=== PATIENT | male | born 1945 | race Caucasian/White ===

== ENCOUNTER → 2016-08-27 | Outpatient (CLI) | payer OTHER ==
--- NOTE | 2016-08-27 15:03 | DI ---
PA /LATERAL CHEST X-RAY, 08/27/2016 11:46 AM : Clinical History: Dyspnea Previous Exam: None at this facility. There is no acute soft tissue or bony abnormality. Heart size is normal. Lungs are clear. Mediastinal structures are normal. There are no pulmonary nodules. IMPRESSION: Normal chest x-ray.
== END ==
LOC: MOB RAD 11:53
PROVIDERS: ATTEND Physician Assistant Medical
DX: R06.00 Dyspnea, unspecified (principal); R42 Dizziness and giddiness; R07.81 Pleurodynia; L72.3 Sebaceous cyst; F17.210 Nicotine dependence, cigarettes, uncomplicated
CPT/HCPCS: 10060 ×2; 71020; 99213; G0463

== ENCOUNTER → 2016-09-10 | Outpatient (CLI) | payer OTHER | LOC: MMPC 09:00 | DX: R42 Dizziness and giddiness (principal); I25.10 Atherosclerotic heart disease of native coronary artery without angina pectoris; I95.9 Hypotension, unspecified; N40.0 Benign prostatic hyperplasia without lower urinary tract symptoms; E78.5 Hyperlipidemia, unspecified; E55.9 Vitamin D deficiency, unspecified; J43.1 Panlobular emphysema | CPT/HCPCS: 99213 ==

== ENCOUNTER → 2016-09-11 | Outpatient (CLI) | payer OTHER ==
[2016-09-11 10:49] LABS: ASPARTATE AMINO TRANSFERASE 21 IU/L (21-57); BILIRUBIN,TOTAL 0.3 mg/dL (0.3-1.2); BLOOD UREA NITROGEN 23 mg/dL (7-22); BUN/CREATININE RATIO 32.85 (6-20); CHLORIDE 106 meq/L (98-112); CREATININE 0.7 mg/dL (0.70-1.50); EST GLOMERULAR FILTRATION > 60 (>60 ml/min/1.73m(2)); GLUCOSE 92 mg/dL (78-110); HDL CHOLESTEROL 48 mg/dL (40-150); POTASSIUM 4.7 meq/L (3.8-5.2); SODIUM 143 meq/L (135-145); TOTAL PROTEIN 6.8 g/dL (6.1-8.0); TRIGLYCERIDES 139 mg/dL (44-200)
[2016-09-11 10:53] LABS: HEMATOCRIT 43.9 % (42.0-52.0); HEMOGLOBIN 14.5 g/dL (14.0-18.0); MEAN CORPUSCULAR HEMOGLOBIN 29.1 PG (27-31); MEAN PLATELET VOLUME 11.2 FL (7.4-12.2); NEUTROPHILS % (AUTO) 55.2 % (50-80); RDW COEFFICIENT OF VARIATION 14.9 % (11.5-14.5); RED BLOOD COUNT 4.98 10^6/uL (4.70-6.10); WHITE BLOOD COUNT 6.48 10^3/uL (4.8-10.8)
[2016-09-11 10:54] LABS: BASOPHILS # (AUTO) 0.05 10*3/UL; BASOPHILS % (AUTO) 0.8 % (0-1); EOSINOPHILS % (AUTO) 2.6 % (0-8); IMM GRAN % (AUTO) 0.2 % (0-5); IMM GRAN# (AUTO) 0.01 10*3/UL; LYMPHOCYTES # (AUTO) 2.14 10*3/uL; MONOCYTES # (AUTO) 0.53 10*3/UL (0.3-0.8); MONOCYTES % (AUTO) 8.2 % (5-15); NEUTROPHILS # (AUTO) 3.58 10*3/UL; PLATELET MORPHOLOGY COMMENT NORMAL MORPHOLOGY (NORM)
== END ==
LOC: MOB LAB 08:06
DX: I95.9 Hypotension, unspecified (principal); J43.1 Panlobular emphysema; E78.5 Hyperlipidemia, unspecified; N40.0 Benign prostatic hyperplasia without lower urinary tract symptoms; E55.9 Vitamin D deficiency, unspecified; Z12.5 Encounter for screening for malignant neoplasm of prostate
CPT/HCPCS: 36415; 80053; 80061; 82306; 82533; 84443; 85025; G0103

== ENCOUNTER → 2016-09-18 | Outpatient (CLI) | payer OTHER ==
--- NOTE | 2016-09-18 15:59 | DI ---
DUPLEX COLOR DOPPLER CAROTID ULTRASOUND, 09/18/2016 1:05 PM: Clinical History: Dizziness. Previous Exam: None at this facility. Technique: 2D real time imaging is supplemented with duplex color doppler ultrasound imaging. RIGHT CAROTID ARTERY: 2D real time imaging of the right carotid system shows a normal appearance of the right common caroti d artery and the external and internal carotid arteries. Peak systolic velocities through the right c ommon carotid, the external carotid, and the internal carotid are 105 cm/s, 77 cm/s, and 80 cm/s, res pectively. All values correspond to diameter stenoses of 0-49%. LEFT CAROTID ARTERY: 2D real time imaging of the left carotid system shows a normal appearance of the left common carotid artery and the external and internal carotid arteries. Peak systolic velocities through the left comm on carotid, the external carotid, and the internal carotid are 112 cm/s, 77 cm/s, and 62 cm/s, respec tively. All values correspond to diameter stenoses of 0-49%. VERTEBRAL ARTERIES: There is antegrade flow through both vertebral arteries Cardiac rhythm is regular. Peak systolic [place] through the visualized portions of the right and left vertebral arteries are 36 cm/s and 41 cm /s, respectively. Both values correspond to diameter stenoses of 0-49%. Readin. There is no hemodynamically significant stenosis of either carotid system. 2. There is antegrade flow through both vertebral arteries. Cardiac rhythm is regular.
== END ==
LOC: US 13:00
DX: R42 Dizziness and giddiness (principal)
CPT/HCPCS: 93880

== ENCOUNTER → 2016-09-24 | Outpatient (CLI) | payer OTHER | LOC: MMPC 09:00 | DX: I95.1 Orthostatic hypotension (principal); I25.10 Atherosclerotic heart disease of native coronary artery without angina pectoris; N40.0 Benign prostatic hyperplasia without lower urinary tract symptoms; E78.5 Hyperlipidemia, unspecified; K21.9 Gastro-esophageal reflux disease without esophagitis; F17.210 Nicotine dependence, cigarettes, uncomplicated | CPT/HCPCS: 99213; G0463 ==

== ENCOUNTER → 2016-11-04 | Outpatient (CLI) | payer OTHER | LOC: MMPC 11:11 | DX: R42 Dizziness and giddiness (principal); I25.10 Atherosclerotic heart disease of native coronary artery without angina pectoris; N40.0 Benign prostatic hyperplasia without lower urinary tract symptoms; E78.5 Hyperlipidemia, unspecified; K21.9 Gastro-esophageal reflux disease without esophagitis; F17.210 Nicotine dependence, cigarettes, uncomplicated | CPT/HCPCS: 99213; G0463 ==

== ENCOUNTER → 2017-02-28 | Outpatient (CLI) | payer OTHER | LOC: MMPC 09:00 | PROVIDERS: ATTEND Physician Assistant Medical | DX: M54.31 Sciatica, right side (principal); M79.604 Pain in right leg | CPT/HCPCS: 99213; G0463 ==

== ENCOUNTER 2019-02-17 13:28 | Inpatient (IN) ==
--- NOTE | 2019-02-17 13:37 | PDOC ---
Dizziness HPI - General Chief Complaint: General Medical Stated Complaint: dizzy Date Seen by Provider: 02/17/19 Time Seen by Provider: 13:32 Source: POSITIVE: Patient Exam Limitations: POSITIVE: No limitations Nurse's Notes Reviewed & Considered: Yes - Record Incomplete EMS Report Reviewed & Considered: Verbal - History of Present Illness Initial Comments: 73 yo male presents to ED with complaint of dizziness. Patient has had complaints of dizziness for the past two years. Patient was seen for same complaint in ED last night. Patient walked to hospital earlier today because he stated he did not understand his discharge instructions from yesterday. Patient has called the outpatient clinic several times today stating he needed help with his dizziness. States he has not taken his medications today. patient has history of alcoholism according to EMS. Patient smokes daily. According to robert campos's family he has a history of dementia. His daughter lives with him in an apartment here in town. Associated Symptoms: REPORTS: Sense of Spinning. DENIES: Nausea, Vomiting, Light Headedness, Fainting, Near Fainting Current Ability to Walk/Stand: REPORTS: Walks w/o Assistance Usual Ability to Walk/Stand: REPORTS: Walks w/o Assistance Aggrevated by: REPORTS: Position Changes Similar Symptoms Previously: Yes Recently seen/treated/hospitalized: Yes Any Prior Injuries Related to Current Complaint?: No - Patient Home Medications Home Medications: Home Medications aspirin 81 mg tablet,delayed release 81 mg PO QDAY tab 06/20/17 ibuprofen 200 mg tablet 400 mg PO PRN PRN tab 06/20/17 polyethylene glycol 3350 17 gram/dose oral powder 255 g PO QDAY PRN #255 g 12/16/17 fludrocortisone 0.1 mg tablet 0.2 mg PO BID #120 tab 05/14/18 omeprazole 20 mg tablet,delayed release 20 mg PO QDAY PRN #90 tab 05/14/18 pravastatin 40 mg tablet 40 mg PO QDAY #90 tab 05/14/18 potassium chloride ER 20 mEq tablet,extended release 20 meq PO DAILY #60 tab 08/18/18 finasteride 5 mg tablet 5 mg PO QDAY #30 tab 12/23/18 sodium chloride 1 gram tablet 1,000 mg PO QDAY #30 tab 02/01/19 - Patient Allergies Allergies/Adverse Reactions: Allergies Allergy/AdvReac Type Severity Reaction Status Date / Time No Known Allergies Allergy Verified 02/16/19 14:19 Past Medical History - heen HEENT History: Hard of Hearing Cardiovascular History: Hyperlipidemia Additional Cardiovasular History: STENTS X2 Respiratory History: Denies History Gastrointestinal History: GERD Genitourinary History: Other (please comment) Additional Genitourinary History: PROSTATIC HYPERTROPHY Endocrine History: Denies History Musculoskeletal History: Denies History Prosthesis or Implant: No Additional Musculoskeletal History: LEFT 1ST AND 2 ND DIGIT (TABLE SAW) Neurological History: Denies History Blood Disorders: Denies History Psychiatric History: Denies History History of Sexually Transmitted Diseases: No Cancer History: Denies History History of MDRO: No History of Other Communicable Diseases: No Alcohol Use: None In the Past 12 Months, Have Used or Abuse Any Substance: None Previous Surgical History: Yes Type / Date of Surgery: 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 DENIES: Headache, Tingling, Numbness, Fainting Gastrointestinal: DENIES: Abdominal Pain, Nausea, Vomitting, Diarrhea Endocrine: REPORTS: Denies Symptoms Musculoskeletal: REPORTS: Denies MS Symptoms Genitourinary: REPORTS: Denies Symptoms Eyes: REPORTS: Denies Symptoms ENT: REPORTS: Denies Symptoms Skin: REPORTS: Denies Skin Symptoms Lympathic: REPORTS: Denies Lympathic Symptoms Immunologic: POSITIVE: Denies Symptoms Psychiatric: POSITIVE: Confusion Dizziness PE - General Appearance General Appearance: POSITIVE: No Acute Distress, Alert - HEENT HEENT: POSITIVE: Head Inspection Nml, Eyes Inspection Nml, Nose Inspection Nml, Pharynx Inspect. Nml, PERRL, EOMI - Pupil Size Pupil Size: 3 mm: Bilateral - Neck Neck: POSITIVE: Supple. NEGATIVE: Thyromegaly, Carotid Bruit - Respiratory Respiratory: POSITIVE: No Respiratory Distress, Breath Sounds Normal. NEGATIVE: Respiratory Distress - Cardiovascular Cardiovascular: POSITIVE: Regular Rate & Rhythm, No Murmur Peripheral Pulses: Radial (R): 2+, Radial (L): 2+ - Abdomen Abdomen: Soft: (All Quadrants), Normal Bowel Sounds: (All Quadrants), Denies Tenderness: (All Quadrants), No Splenomegaly: (All Quadrants), No Hepatomegaly: (All Quadrants), No Guarding: (All Quadrants) - Skin Skin: POSITIVE: Intact, Normal For Race, Warm, Dry, No Rash - Extremities Extremity: Non-Tender: (All Extremities), Normal ROM: (All Extremities), Normal Inspection: (All Extremities) - Neuro/Psych Neuro/Psych: POSITIVE: Alert, Affect Appropriate, Mood Appropriate, Normal Speech, Normal Cognition Cranial Nerves: POSITIVE: Normal As Tested Cerebellar: POSITIVE: Normal As Tested Sensorimotor: POSITIVE: No Motor Deficits, No Sensory Deficits, Reflexes Normal Reflexes: Patellar (R): 2+, Patellar (L): 2+ Dizziness Progress - Results Reviewed by me Xrays/CTs/US Reviewed by me: Yes Discussed with Radiologist: No Radiology Findings: CTA NECK - Normal evaluation of the cervical and intracranial vasculature. CT HEAD - No acute intracranial findings. Age related senescent changes Lab Results Reviewed by Me: Yes Lab Results:: Laboratory Results 02/17/19 02/17/19 02/17/19 13:30 14:10 14:10 WBC 6.40 RBC 4.86 Hgb 14.4 Hct 42.5 MCV 87.4 MCH 29.6 MCHC 33.9 RDW Std Deviation 48.7 RDW Coeff of Zahraa 15.4 H Plt Count 182 MPV 10.6 Immature Gran % (Auto) 0 Neut % (Auto) 72.7 Lymph % (Auto) 20.3 [place] % (Auto) 5.9 Eos % (Auto) 0.8 Baso % (Auto) 0.3 Immature Gran # (Auto) 0 Neut # (Auto) 4.65 Lymph # (Auto) 1.30 [place] # (Auto) 0.38 Eos # (Auto) 0.05 Baso # (Auto) 0.02 WBC Morphology Comment Normal morphology Plt Morphology Comment Normal morphology RBC Morph Comment Normal morphology Sodium 138 Potassium 4.1 Chloride 107 Carbon Dioxide 22 L Anion Gap 9 BUN 22 Creatinine 0.9 BUN/Creatinine Ratio 24.44 H Glucose 93 Calculated Osmolality 288.0 Calcium 9.9 Total Bilirubin 0.4 AST 22 ALT 15 L Alkaline Phosphatase 96 Troponin I Handheld Total Protein 6.7 Albumin 3.8 Globulin 2.9 Albumin/Globulin Ratio 1.30 Ur Collection Type Urine Color Urine Clarity Urine pH Ur Specific [place] Urine Protein Urine Glucose (UA) Urine Ketones Urine Occult Blood Urine Nitrate Urine Bilirubin Urine Urobilinogen Ur Leukocyte Esterase Urine RBC Urine WBC Ur Squamous Epith Cells Ur Renal Epithelial Cell Urine Crystals Urine Bacteria Urine Casts Urine Mucus Urine Trichomonas Urine Yeast Ur Culture Indicated? Serum Alcohol < 10 02/17/19 02/17/19 14:10 16:28 WBC RBC Hgb Hct MCV MCH MCHC RDW Std Deviation RDW Coeff of [place] Plt Count MPV Immature Gran % (Auto) Neut % (Auto) Lymph % (Auto) [place] % (Auto) Eos % (Auto) Baso % (Auto) Immature Gran # (Auto) Neut # (Auto) Lymph # (Auto) [place] # (Auto) Eos # (Auto) Baso # (Auto) WBC Morphology Comment Plt Morphology Comment RBC Morph Comment Sodium Potassium Chloride Carbon Dioxide Anion Gap BUN Creatinine BUN/Creatinine Ratio Glucose Calculated Osmolality Calcium Total Bilirubin AST ALT Alkaline Phosphatase Troponin I Handheld 0.000 Total Protein Albumin Globulin Albumin/Globulin Ratio Ur Collection Type Cath specimen Urine Color Yellow Urine Clarity Clear Urine pH 6.5 Ur Specific [place] <=1.005 Urine Protein Negative Urine Glucose (UA) Negative Urine Ketones Negative Urine Occult Blood Trace-intact H Urine Nitrate Negative Urine Bilirubin Negative Urine Urobilinogen 0.2 Ur Leukocyte Esterase Small Urine RBC 3-8 Urine WBC 3-8 Ur Squamous Epith Cells Moderate Ur Renal Epithelial Cell None Urine Crystals None Urine Bacteria Few Urine Casts None Urine Mucus None Urine Trichomonas None Urine Yeast None Ur Culture Indicated? Culture set Serum Alcohol CBC and BMP: 02/17/19 14:10 02/17/19 14:10 EKG Interpreted/Reviewed By Me:: Yes (Sinus rhythm at 81 bpm with Q waves in II, III, aVF) EKG Interpretation:: POSITIVE: Normal Sinus Rhythm, Other (sinus rhythm at 81 bpm with Q waves in leads II, III, aVF, no ST changes; nonspecific T wave inversion in aVR & aVL) - Patient's Progress Pain Medication Addressed: POSITIVE: Not Applicable Re-Examine Comment: I reviewed CT images and results. I reviewed lab results and EKG. I discussed all results with the patient. His hypotension has improved with fluid bolus. He is hungry and would like to eat. Will feed him here in ED and check oral challenge. Re-Examine Comment: Spoke with hospitalist, Dr. Kay, he will evaluate the case. Patient's hypotension resolved with about 500 mLs of fluid. Andrean is tolerating lunch well. All results discussed with patient. Social work consulted and will arrange for home health visits. Re-Examine Comment: Will defer antibiotic treatment to hospitalist. Patient admitted to hospitalist service in slightly improved condition. Status: POSITIVE: Improved (hypotension improved) MDM / ED Course: Patient presents with complaint of dizziness and hypotension. Orthostatic vitals obtained. will establish IV line and give bolus of fluids. Due to patient's complaints of dizziness will obtain EKG, CT head and CTA neck. Will also obtain serum labs. patient denies CP at this time. Patient has some component of dementia and does not remember calling the ED and the clinic multiple times today. CVA/Syncope Quality Measure Initiative: POSITIVE: EKG - Consult Consult (If Yes, Name of Consulting MD & Time Called): Yes (Dr. Kay) Consulting MD will see pt:: POSITIVE: [facility] [place] Admit Counseled: POSITIVE: Patient, RE: Lab Results, RE: Radiology Results, RE: DX Patient Care Time - Estimated PCT Patient Care Time (In Minutes): 75 Vital Signs - Recent Vital Signs Vital Signs: Vital Signs (Last 8 hours) Temp Pulse Resp BP BP Pulse Ox 02/17/19 13:29 97.1 F 93 17 87/66 98/67 93 - VS Reviewed Vital Signs Reviewed: Yes Discharge Clinical Impression: Dizziness, Dehydration, Urinary tract infection Hypotension Qualifiers: Hypotension type: orthostatic hypotension Qualified Code(s): I95.1 - Orthostatic hypotension Discharge Disposition: Admit to Inpatient Condition: Stable Patient Problem(s) Reviewed: Yes Care Transferred To: Dr. Kay Date Decision to Admit to Inpatient: 02/17/19 Time Decision to Admit to Inpatient: 15:45
[2019-02-17] MEDS ORDERED: Lactated Ringers 1,000 ML PRIMARY IV ONE (13:53)
[2019-02-17 14:20] LABS: BASOPHILS # (AUTO) 0.02 10*3/UL; BASOPHILS % (AUTO) 0.3 % (0-1); EOSINOPHILS # (AUTO) 0.05 10*3/UL; EOSINOPHILS % (AUTO) 0.8 % (0-8); Hematocrit [HCT] 42.5 % (42.0-52.0); Hemoglobin [HGB] 14.4 g/dL (14.0-18.0); MEAN CORPUSCULAR HGB CONC 33.9 g/dL (33-37); MEAN CORPUSCULAR VOLUME 87.4 FL (80-90); MEAN PLATELET VOLUME 10.6 FL (7.4-12.2); MONOCYTES # (AUTO) 0.38 10*3/UL (0.3-0.8); MONOCYTES % (AUTO) 5.9 % (5-15); NEUTROPHILS # (AUTO) 4.65 10*3/UL; NEUTROPHILS % (AUTO) 72.7 % (50-80); RED BLOOD COUNT 4.86 10^6/uL (4.70-6.10)
[2019-02-17 14:22] LABS: PLATELET MORPHOLOGY COMMENT NORMAL MORPHOLOGY (NORM); RBC MORPHOLOGY COMMENT NORMAL MORPHOLOGY (NORM); WBC MORPHOLOGY COMMENT NORMAL MORPHOLOGY (NORM)
[2019-02-17 14:29] LABS: BLOOD UREA NITROGEN 22 mg/dL (7-22); BUN/CREATININE RATIO 24.44 (6-20); SERUM ALBUMIN 3.8 g/dL (3.5-4.8)
--- NOTE | 2019-02-17 15:26 | DI ---
CT Head WWO Contrast 02/17/2019 1:58 PM [place]: [facility] [place] Comparison: None. Procedure: Noncontrast CT images through the head were reviewed. Findings: There is no acute intracranial hemorrhage or extra-axial fluid collection. The ventricles a re symmetric. There is mild global atrophy which is within the expected range for age. Decreased atte nuation in the periventricular white matter is consistent with mild chronic small vessel ischemic brandi nges. There is otherwise normal stevenson-white differentiation without enhancing mass or significant mass -effect. Vascular structures are intact with atheromatous calcifications noted in the intracranial va sculature. The visualized portions of the paranasal sinuses and mastoid air cells are clear. Review o f the osseous structures demonstrate no depressed calvarial fracture or aggressive osseous lesion. Th e facial soft tissues are unremarkable. Impression: 1. No acute intracranial findings. 2. Age related senescent changes as above.
--- NOTE | 2019-02-17 15:38 | DI ---
CT CTA Neck WWO Contrast 02/17/2019 1:57 PM History: [facility] [place] ^dizziness Comparison: CT chest 06/27/2017. Technique: CT angiography of the cervical vessels and [place] was performed after the admini stration of 65 mL of Ultravist 370 intravenous contrast. There was no immediate complication. Findings: There is normal opacification of the bilateral carotid and vertebral arteries. Left dominan t vertebral circulation is present. The posterior communicating arteries are hypoplastic or absent. T he [place] is otherwise complete. No focal aneurysm is identified. There is no evidence of d issection, thrombosis, or rupture. Atheromatous calcifications are noted in the cavernous segments of the bilateral internal carotid arteries. Further evaluation of the neck shows no significant cervical lymphadenopathy. The parotid and submand ibular glands exhibit normal CT morphology. Emphysematous changes are noted in the lung apices where there is biapical pleural-parenchymal scarring that has not significantly changed compared to prior i maging. The visualized osseous structures are normal for age with multilevel degenerative endplate ch anges. The thyroid gland is unremarkable. Impression: 1. Normal evaluation of the cervical and intracranial vasculature.
[2019-02-17 16:36] LABS: BILIRUBIN,URINE NEGATIVE (NEG); CLARITY,URINE CLEAR (CLEAR); COLOR,URINE YELLOW (Y); GLUCOSE, URINE (UA) NEGATIVE (NEG); OCCULT BLOOD,URINE Trace-intact (NEG); PH,URINE 6.5 (5.0-8.5); PROTEIN,URINE NEGATIVE (NEG); UROBILINOGEN,URINE 0.2 EU/dL (0.2)
[2019-02-17 16:42] LABS: SQUAMOUS EPITHELIAL CELL,UR MODERATE; URINE SAMPLE TYPE CATH SPECIMEN
[2019-02-17 16:43] LABS: BACTERIA,URINE FEW
--- NOTE | 2019-02-17 17:09 | PDOC ---
HPI - History of Present Illness Date of Service: 02/17/19 Time of Service: 17:03 Chief Complaint: Confusion and dizziness History of Present Illness: This very pleasant 73-year-old male with BPH, chronic dizziness/lightheadedness, coronary artery disease status post bare metal stents in 2013, tobacco abuse, amongst other medical issues, who comes in to the emergency room today with complaints of dizziness. I'm told by the emergency room physician today that the patient came in yesterday, complained of dizziness but had no recollection o f discharge instructions from the emergency room. He seemed to be oriented to person, place, and situation, but when it came to short-term details he had no recall of recent events. The patient apparently called the clinic multiple times with complaints of dizziness and they called 911 and the patient was picked up at his house and brought into the emergency room for evaluation. In the emergency room, he had a CTA of the neck, that did not reveal any evidence of carotid artery disease. A noncontrast head CT scan was negative for a bleed. The urinalysis is suggestive of urinary tract infection. The patient himself is a poor historian. He states he cannot tell me for sure if he is vertigo like or lightheaded in terms of his dizziness. He denies chest pain, shortness breath, nausea or vomiting or other epigastric discomfort at the time of his episodes. He states that he's had 2 falls related to the syncopal episodes, [place] [facility] [place] [facility] He cannot give me any history present events. He is lucid, but definitely has difficulty understanding more complex questions. It is clear his cognitive abilities with questions about his health care needs are not at full functioning capacity. Patient is not sure how many pills he is on. He is not sure if he is taking them all as prescribed or not. He cannot describe to me whether he is having urinary tract infection symptoms of burning, dysuria or not. Chart reflexes he has had urinary retention and has had some sort of cystoscopy, and I was able to find the results and review of his medical record. He had a water vaporization TURP. It appears that he had been on Bactrim for a month as well, and it could be related to recent staph epidermidis isolated in the bladder. This was on 12/02/2018. Past Medical History Medical History: 1. Coronary artery disease status post bare metal stents in 2013. 2. Benign prostatic hypertrophy with history of obstructive uropathy, status post recent transurethral water vaporization of the prostate with resultant improved post void residual. 3. Tobacco abuse. 4. Overall failure to thrive, weighs 138 pounds now and was 155 in 2017. 5. Cognitive impairment versus dementia. 6. Hypercholesterolemia. 7. GERD Surgical History: 1. Bare metal stents as mentioned. 2. History of cystoscopy Pertinent Family History: Significant for diabetes in one of his daughters. He states his father had stroke and heart attack and he does not know his mother's history Past Social History: Lives with his daughter. Used to work as a contractor. Smoker. Currently does not drink alcohol. Has 1 daughter and one granddaughter. Tobacco Use: Current Every Day Smoker In the Past 12 Months, Have Used or Abuse Any of the Following Substance: None Alcohol Use: None Medication / Allergies Home Medications: Home Medications Medication Instructions Recorded Confirmed aspirin 81 mg tablet,delayed 81 mg PO QDAY tab 06/20/17 02/17/19 release ibuprofen 200 mg tablet 400 mg PO PRN PRN tab 06/20/17 02/17/19 polyethylene glycol 3350 17 255 g PO QDAY PRN #255 g 12/16/17 02/17/19 gram/dose oral powder fludrocortisone 0.1 mg tablet 0.2 mg PO BID #120 tab 05/14/18 02/17/19 omeprazole 20 mg tablet,delayed 20 mg PO QDAY PRN #90 tab 05/14/18 02/17/19 release pravastatin 40 mg tablet 40 mg PO QDAY #90 tab 05/14/18 02/17/19 potassium chloride ER 20 mEq 20 meq PO DAILY #60 tab 08/18/18 02/17/19 tablet,extended release finasteride 5 mg tablet 5 mg PO QDAY #30 tab 12/23/18 02/17/19 sodium chloride 1 gram tablet 1,000 mg PO QDAY #30 tab 02/01/19 02/17/19 Allergies/Adverse Reactions: Allergies Allergy/AdvReac Type Severity Reaction Status Date / Time No Known Allergies Allergy Verified 02/16/19 14:19 Review of Systems - Review of Systems ROS Unobtainable: Due to Mental Status (I think the patient has more than a mild cognitive impairment and has underlying dementia. Very difficult to obtain an adequate review systems from him. He does deny, however, chest pain, shortness breath, nausea or vomiting currently.) Exam - Vitals Vital Signs: Vital Signs Temperature 97.1 F Temperature Source Temporal Artery Scan Pulse Rate [Pulse Oximeter 93 Right] Respiratory Rate 17 Blood Pressure [Right Arm] 98/67 Blood Pressure [Left Arm] 87/66 Pulse Ox 93 Oxygen Delivery Method Room Air Height 5 ft 8 in Weight 138 lb Vital Signs - Last Taken Temperature 96.7 F L 02/17/19 17:23 Pulse Rate 93 02/17/19 17:23 Respiratory Rate 17 02/17/19 17:23 Blood Pressure 87/66 02/17/19 17:23 Pulse Ox 95 02/17/19 17:23 - General General Appearance: No Acute Distress, Cooperative - Head Head Exam: Normal Inspection, Normocephalic, Atraumatic Additional Head Exam Details: Temporal wasting - Eye Eye Exam: POSITIVE: No Scleral Icterus - ENT ENT Exam: POSITIVE: Mucous Membranes Dry - Neck Neck Exam: Normal Inspection, No Tenderness, No Lymphadenopathy, No Thyromegaly, JVP is not Raised - Respiratory Respiratory Exam: POSITIVE: Clear to Auscultation - Bilaterally, Breathing Non Labored, Normal to Percussion and Palpation - Cardiovascular Cardiovascular Exam: POSITIVE: RRR, No Murmur, No Clicks, No Gallops, No Rubs, No JVD - GI/Abdominal GI/Abdominal Exam: POSITIVE: Normal Bowel Sounds, Non Tender, Non Distended, Soft - Rectal Rectal Exam: POSITIVE: Deferred - External Exam: POSITIVE: Deferred Exam: POSITIVE: Deferred - Extremities Extremities Exam: POSITIVE: No Edema Present, No Cyanosis Present, Clubbing Present - Back Back Exam: POSITIVE: No CVA Tenderness - Neurological Neurological Exam: POSITIVE: Alert, No Facial Droop, Speech Intact / Clear, Moves All Extremities Equally, Altered (He is oriented to person, place, but not necessarily to time. Not totally oriented to situation.) Additional Neurological Exam Details: Bruising left knee and leg - Psychiatric Psychiatric Exam: POSITIVE: Normal Affect, Normal Mood - Integumentary Integumentary Exam: POSITIVE: Normal Color, Warm, Dry, Intact Additional Integumentary Exam Details: Bruising as discussed above Results - Labs CBC and BMP: 02/17/19 14:10 02/17/19 14:10 Additional Lab Results: Laboratory Results 02/17/19 02/17/19 02/17/19 13:30 14:10 14:10 WBC 6.40 RBC 4.86 Hgb 14.4 Hct 42.5 MCV 87.4 MCH 29.6 MCHC 33.9 RDW Std Deviation 48.7 RDW Coeff of Zahraa 15.4 H Plt Count 182 MPV 10.6 Immature Gran % (Auto) 0 Neut % (Auto) 72.7 Lymph % (Auto) 20.3 Baldwin % (Auto) 5.9 Eos % (Auto) 0.8 Baso % (Auto) 0.3 Immature Gran # (Auto) 0 Neut # (Auto) 4.65 Lymph # (Auto) 1.30 Baldwin # (Auto) 0.38 Eos # (Auto) 0.05 Baso # (Auto) 0.02 WBC Morphology Comment Normal morphology Plt Morphology Comment Normal morphology RBC Morph Comment Normal morphology Sodium 138 Potassium 4.1 Chloride 107 Carbon Dioxide 22 L Anion Gap 9 BUN 22 Creatinine 0.9 BUN/Creatinine Ratio 24.44 H Glucose 93 Calculated Osmolality 288.0 Calcium 9.9 Total Bilirubin 0.4 AST 22 ALT 15 L Alkaline Phosphatase 96 Troponin I Handheld Total Protein 6.7 Albumin 3.8 Globulin 2.9 Albumin/Globulin Ratio 1.30 Ur Collection Type Urine Color Urine Clarity Urine pH Ur Specific Cutler Urine Protein Urine Glucose (UA) Urine Ketones Urine Occult Blood Urine Nitrate Urine Bilirubin Urine Urobilinogen Ur Leukocyte Esterase Urine RBC Urine WBC Ur Squamous Epith Cells Ur Renal Epithelial Cell Urine Crystals Urine Bacteria Urine Casts Urine Mucus Urine Trichomonas Urine Yeast Ur Culture Indicated? Serum Alcohol < 10 02/17/19 02/17/19 14:10 16:28 WBC RBC Hgb Hct MCV MCH MCHC RDW Std Deviation RDW Coeff of Zahraa Plt Count MPV Immature Gran % (Auto) Neut % (Auto) Lymph % (Auto) Baldwin % (Auto) Eos % (Auto) Baso % (Auto) Immature Gran # (Auto) Neut # (Auto) Lymph # (Auto) Baldwin # (Auto) Eos # (Auto) Baso # (Auto) WBC Morphology Comment Plt Morphology Comment RBC Morph Comment Sodium Potassium Chloride Carbon Dioxide Anion Gap BUN Creatinine BUN/Creatinine Ratio Glucose Calculated Osmolality Calcium Total Bilirubin AST ALT Alkaline Phosphatase Troponin I Handheld 0.000 Total Protein Albumin Globulin Albumin/Globulin Ratio Ur Collection Type Cath specimen Urine Color Yellow Urine Clarity Clear Urine pH 6.5 Ur Specific Cutler <=1.005 Urine Protein Negative Urine Glucose (UA) Negative Urine Ketones Negative Urine Occult Blood Trace-intact H Urine Nitrate Negative Urine Bilirubin Negative Urine Urobilinogen 0.2 Ur Leukocyte Esterase Small Urine RBC 3-8 Urine WBC 3-8 Ur Squamous Epith Cells Moderate Ur Renal Epithelial Cell None Urine Crystals None Urine Bacteria Few Urine Casts None Urine Mucus None Urine Trichomonas None Urine Yeast None Ur Culture Indicated? Culture set Serum Alcohol - EKG Data -: EKG Interpreted by Me Rate: Normal EKG Shows Normal: Sinus Rhythm - Imaging Status: Image Reviewed by Me (I looked at the head CT scan, there is no bleed. I read the radiology report., Periventricular white matter disease consistent with small vessel ischemic disease. CT scan of the neck with contrast shows patent carotid arteries, and I read the radiology report on that as well.) Assessment and Plan - Patient Problems (1) Urinary tract infection Current Visit: Yes Status: Acute Code(s): N39.0 - Urinary tract infection, site not specified Qualifiers: Urinary tract infection type: acute cystitis Hematuria presence: without hematuria Qualified Code(s): N30.00 - Acute cystitis without hematuria (2) Coronary artery disease Current Visit: Yes Status: Acute Code(s): I25.10 - Atherosclerotic heart disease of alutiiq coronary artery without angina pectoris Qualifiers: Coronary Disease-Associated Artery/Lesion type: alutiiq artery [place] vs. transplanted heart: alutiiq heart Associated angina: without angina Qualified Code(s): I25.10 - Atherosclerotic heart disease of alutiiq coronary artery without angina pectoris (3) BPH (benign prostatic hyperplasia) Current Visit: No Status: Chronic Onset Date: 02/20/15 Code(s): N40.0 - Benign prostatic hyperplasia without lower urinary tract symptoms Qualifiers: Lower urinary tract symptom presence: symptoms present Lower urinary tract symptom detail: urinary obstruction Qualified Code(s): N40.1 - Benign prostatic hyperplasia with lower urinary tract symptoms; N13.8 - Other obstructive and reflux uropathy (4) Dizziness Current Visit: Yes Status: Acute Code(s): R42 - Dizziness and giddiness (5) GERD (gastroesophageal reflux disease) Current Visit: Yes Status: Chronic Onset Date: 02/20/15 Code(s): K21.9 - Gastro-esophageal reflux disease without esophagitis Qualifiers: Esophagitis presence: esophagitis presence not specified Qualified Code(s): K21.9 - Gastro-esophageal reflux disease without esophagitis (6) Hyperlipidemia Current Visit: Yes Status: Acute Onset Date: 02/20/15 Code(s): E78.5 - Hyperlipidemia, unspecified Qualifiers: Hyperlipidemia type: unspecified Qualified Code(s): E78.5 - Hyperlipidemia, unspecified (7) Dementia Current Visit: Yes Status: Acute Code(s): F03.90 - Unspecified dementia without behavioral disturbance Qualifiers: Dementia type: vascular dementia Dementia behavioral disturbance: without behavioral disturbance Qualified Code(s): F01.50 - Vascular dementia without behavioral disturbance - Assessment / Plan Additional Assessment/Plan Details: Admit. I discussed with emergency room physician. We will start Rocephin for urinary tract infection but will start here on the floor as I started the admission process. Get TSH, free T4, vitamin B12 level, folic acid level, vitamin D level with mild cognitive impairment. Likely will need to get MOCA score I suspect underlying dementia. Try to simplify medications and eliminate those medications with cognitive impairment issues. Stop statin for example. Social situation for this patient is very difficult as the patient has an alcoholic daughter is his main support. I'm not sure if he'll be able to manage continued independent living. But we will assess this through the hospital stay. In terms of urinary tract infection, leukocytes are mild, there is bacteria present, cultures pending. Again, empiric therapy until we know culture results. PT and OT We'll try to clarify dizziness with the patient through the hospital stay to guide workup. For now I will do telemetry monitoring in case this is arrhythmia driven. May benefit from Holter monitoring as an outpatient? Continue aspirin for coronary artery disease. Full code. I tried to place called to daughter, she is a well-known alcoholic to the hospitalist service here, and unfortunately she is not available and it went to her voicemail. With worsening confusion/dementia, the patient is not safe for discharge home. He does not have social support able to safely be at home and he would be at significant risk, for example, turning on the stove and not recalling that he had done that.
[2019-02-17] MEDS ORDERED: CALCIUM CARBONATE 500 MG (TUMS) CHEWABLE TABLET PO PRN (17:22)
[2019-02-17] MEDS ORDERED: ONDANSETRON 4 MG/2 ML VIAL IVP PRN (17:22)
[2019-02-17] MEDS ORDERED: DOCUSATE 100 MG CAPSULE PO PRN (17:22)
[2019-02-17] MEDS ORDERED: ACETAMINOPHEN 325 MG TABLET PO PRN (17:22)
[2019-02-17] MEDS ORDERED: LIDOCAINE W/ SODIUM BICARB 0.5 ML SYR SUBD PRN (17:22)
--- NOTE | 2019-02-17 17:25 | EKG ---
[address] [address] Measurements Intervals [place] Rate: 81 P: 82 CA: 152 QRS: 84 QRSD: 87 T: 89 QT: 366 QTc: 403 Interpretive Statements SINUS RHYTHM Compared to ECG 02/16/2019 11:50:43 No significant changes Electronically Signed On 02-18-19 10:06:45 MDT by Nii Summers MD [email or web address]
[2019-02-17] MEDS: OMEPRAZOLE 20 MG CAPSULE PO SCH (18:24)
[2019-02-17] MEDS: ASPIRIN EC 81 MG TABLET PO SCH (18:24)
[2019-02-17] MEDS: Lactated Ringers 1,000 ML PRIMARY IV SCH (18:25)
[2019-02-17] MEDS: cefTRIAXone Inj 2 GM in Sodium Chloride 0.9% 100 ML IV SCH (18:25)
[2019-02-17] MEDS: FLUDROCORTISONE ACETATE 0.1 MG TABLET PO SCH (21:40)
[2019-02-18] MEDS: Lactated Ringers 1,000 ML PRIMARY IV SCH (07:19)
[2019-02-18] MEDS: FLUDROCORTISONE ACETATE 0.1 MG TABLET PO SCH ×2 (08:23→21:37)
[2019-02-18] MEDS: OMEPRAZOLE 20 MG CAPSULE PO SCH (08:23)
[2019-02-18] MEDS: ASPIRIN EC 81 MG TABLET PO SCH (08:24)
[2019-02-18] MEDS: POLYETHYLENE GLYCOL 3350 238 GM POWDER PO SCH (08:24)
[2019-02-18] MEDS: POTASSIUM CHLORIDE 20 MEQ TAB PO SCH (08:24)
[2019-02-18] MEDS ORDERED: Sodium Chloride Tab 1 TAB TAB PO SCH (09:00)
--- NOTE | 2019-02-18 15:12 | PTI REPORT ---
Thank you for the referral of Javier Gallegos. He was seen on 02/18/19 for an inpatient evaluation secondary to weakness, dizziness, and balance deficits. SUBJECTIVE: The patient is a 73-year-old male. Chart review reveals that the patient came into the emergency room yesterday with complaints of dizziness and had also presented to the emergency room the day before, also with dizziness. It was their opinion that he had no recollection of discharge instructions the day before, seemingly being oriented to person, place, and situation; however, presented with difficulty with short term details. Testing was negative for a stroke; however, was positive for a urinary tract infection. At the time of the evaluation, the patient's granddaughter is present, stating that at this time the patient's daughter lives with him; however, she is unable to help out the patient due to her poor health. The granddaughter currently is trying to seek out power of city attorney to get her grandfather into the [facility]. She states at this moment socially responsible investment adviser should be over at the patient's apartment due to concerns of his current living situation. The patient was difficult to talk to due to his inability to answer questions appropriately. He was very easily distracted and appeared confused. PAST MEDICAL HISTORY: Past medical history can be found in the patient's medical record. OBJECTIVE FINDINGS: Pain: The patient denied any pain when asked. Bed mobility/Transfers: The patient was able to perform bed mobility and transfers with min to mod assistance due to concerns for his safety and balance. Ambulation: The patient demonstrated the ability to ambulate well over 300 feet continuously with gait belt and hand hold assist as well as contact guard to min assist due to concerns of losing his balance. He was unable to ambulate in a straight line and preferred to walk along the wall, at times crossing his feet as well. When ambulating with verbal cues, the patient was asked to perform scanning activities in the horizontal plane which presented difficulty. When looking to the right, the patient had a tendency to cross his left foot over his right, presenting a tripping hazard as well as when looking to the left he had a tendency to cross his right foot over his left. Range of motion/Strength: Bilateral lower extremity range of motion is within functional limits with strength at best at 4/5. ASSESSMENT: Problem List: Concerns with balance and safety awareness Decreased safety with functional movement Physical Therapy Goals: To be met by discharge from inpatient: Patient will be able to perform all transfers and bed mobility safely. Patient will be able to ambulate up to 300 feet continuously with all wheeled walker. TREATMENT PLAN: Patient will be seen B.I.D during the week and one time per day over the weekend as an inpatient for generalized strengthening and balance awareness. INITIAL TREATMENT: Treatment today consisted of the initial evaluation in conjunction with occupational therapy. He did ambulate 300 feet focusing on horizontal scanning activities which required min to mod assist for prevention of falls. JULIA
--- NOTE | 2019-02-18 15:41 | OTI REPORT ---
Thank you for the referral of Javier Gallegos. He was seen on 02/18/19 for an occupational therapy inpatient evaluation secondary to weakness. SUBJECTIVE: The patient is a 73-year-old male who is being seen today secondary to coming to the emergency room. He has a diagnosis of chronic dizziness, coronary artery disease, a UTI, GERD, hyperlipidemia, and dementia. The patient's granddaughter was present during the session today and she reports that Javier typically lives with her mom. She did report that her mom is an alcoholic and does not take care of him very well. She is very skewed with her reports of how her grandpa is doing. She reported that her grandpa raised her from the 7th grade and she has very high respect for him and wants to help take care of him. She reports that if someone saw the house right now, it would not be pretty. They do have social work specialist involved and they are going over to the house today to check out his living conditions. She states she has noticed an increase in cognitive concerns and she states his balance has become worse. She reports that the house is "disgusting". The patient is unable to use his phone anymore. She is questioning whether he is getting the appropriate medications that he needs. He requires assistance with financial solutions advisor. She also reported that her mom is living off of his social security. Her mom does not have any income whatsoever other than his social security check and that is what they both live on. He has a history of chronic UTIs and is very forgetful. PAST MEDICAL HISTORY: Past medical history can be found in the patient's medical record. OBJECTIVE FINDINGS: General observations: The patient was able to respond with one word answers. He was able to follow one step commands for simple tasks. The patient demonstrated a lot of impulsivity and was forgetting what he was doing when asked to complete tasks. Range of motion: The patient had within functional limits for active range of motion of bilateral upper extremities. He was able to touch the back of his head for external rotation. Strength: Strength in bilateral upper extremities was 4+/5 for the shoulder, elbow, and wrist. Activities of daily living: The patient was able to doff and don his socks while sitting in a chair with verbal cues. Cognition: Today the patient was assessed with the Isidro Cognitive Assessment (MoCA). The results are as follows: Visuospatial/Executive: 0/5 Namin/3 Attention: 3/6 Language: 0/3 Abstraction: 0/2 Delayed recall: 0/5 Orientation: 3/6 The patient had a total score of 9/30 which places him in the SEVERE cognitive impairment category. ASSESSMENT: The patient is demonstrating severe cognitive impairment. His granddaughter is very concerned about him living with her mom as it does not sound like it is a very good situation. The patient's granddaughter's goal is to get him into the [facility] and hopefully become his power of disability attorney to take over some of the decisions that need to be made medically. The patient does need 24-hour care and the [facility] or another nursing facility would be recommended. The patient will need assistance with all of his medications and financial solutions advisor as well as with safety awareness and to address his impulsivity. The patient's balance is also an issue. He tends to forget what he is doing and loses focus easily, resulting in losing his balance. Problem List: Decreased ability to complete ADLs Decreased cognitive abilities Decreased ability to complete functional transfers Short-Term Goals: To be met by discharge from inpatient: Patient will be able to dress self including set up with contact guard assist. Patient will be able to complete a shower transfer and showering task with contact guard assist. Patient will be able to complete a toilet transfer as well as toilet hygiene independently. Patient will be able to complete dynamic upper extremity reaching tasks with contact guard assist to address his balance and concerns with standing activities. Long-Term Goals: To be met following discharge from inpatient: Patient will be discharged with 24-hour care. TREATMENT PLAN: Patient will be seen B.I.D during the week and one time per day over the weekend as an inpatient to address the above goals and objectives. INITIAL TREATMENT: Treatment today consisted of the initial evaluation only. JULIA
--- NOTE | 2019-02-18 16:13 | PDOC(PROG) ---
Date of Service: 02/18/19 Time of Service: 16:12 Interval History: patient seen, evaluated earlier this AM, again this afternoon. no chest pain, no SOB, no nausea or vomiting has not liked telemetry monitoring. scored 9/30 on MOCA, has moderate to severe dementia not able to live on his own, daughter not able to care for patient due to alcoholism. social worker clinical involved, [facility] willing to accept. family present (brothers and sister) and they are concerned for welfare of patient and want to see him in [facility]. granddaughter trying to sal POA Objective : Data - Labs CBC and BMP: 02/17/19 14:10 02/17/19 14:10 Objective : Exam - General General Appearance: No Acute Distress, Cooperative Additional General Exam Details: Vital Signs - Last Taken Temperature 98.2 F 02/18/19 16:23 Pulse Rate 62 02/18/19 16:23 Respiratory Rate 16 02/18/19 16:23 Blood Pressure 184/95 02/18/19 16:23 Pulse Ox 95 02/18/19 16:23 - Eye Eye Exam: No Scleral Icterus - ENT ENT Exam: Mucous Membranes Moist - Neck Neck Exam: JVP is not Raised - Respiratory Respiratory Exam: Clear to Auscultation - Bilaterally, Breathing Non Labored - Cardiovascular Cardiovascular Exam: RRR, No Murmur, No Clicks, No Gallops, No Rubs, No JVD - GI/Abdominal GI/Abdominal Exam: Normal Bowel Sounds, Non Tender, Non Distended, Soft - Extremities Extremities Exam: No Edema Present, No Cyanosis Present, Clubbing Present - Neurological Neurological Exam: Alert, No Facial Droop, Speech Intact / Clear, Moves All Ext remities Equally Additional Neurological Exam Details: oriented to person, not to place, time or situation. Assessment and Plan - Patient Problems (1) Urinary tract infection Current Visit: Yes Status: Acute Code(s): N39.0 - Urinary tract infection, site not specified Qualifiers: Urinary tract infection type: acute cystitis Hematuria presence: without hematuria Qualified Code(s): N30.00 - Acute cystitis without hematuria (2) Coronary artery disease Current Visit: Yes Status: Acute Code(s): I25.10 - Atherosclerotic heart disease of [place] coronary artery without angina pectoris Qualifiers: Coronary Disease-Associated Artery/Lesion type: [place] artery [place] vs. transplanted heart: [place] heart Associated angina: without angina Qualified Code(s): I25.10 - Atherosclerotic heart disease of [place] coronary artery without angina pectoris (3) BPH (benign prostatic hyperplasia) Current Visit: No Status: Chronic Onset Date: 02/20/15 Code(s): N40.0 - Benign prostatic hyperplasia without lower urinary tract symptoms Qualifiers: Lower urinary tract symptom presence: symptoms present Lower urinary tract symptom detail: urinary obstruction Qualified Code(s): N40.1 - Benign prostatic hyperplasia with lower urinary tract symptoms; N13.8 - Other obstructive and reflux uropathy (4) Dizziness Current Visit: Yes Status: Acute Code(s): R42 - Dizziness and giddiness (5) GERD (gastroesophageal reflux disease) Current Visit: Yes Status: Chronic Onset Date: 02/20/15 Code(s): K21.9 - Gastro-esophageal reflux disease without esophagitis Qualifiers: Esophagitis presence: esophagitis presence not specified Qualified Code(s): K21.9 - Gastro-esophageal reflux disease without esophagitis (6) Hyperlipidemia Current Visit: Yes Status: Acute Onset Date: 02/20/15 Code(s): E78.5 - Hyperlipidemia, unspecified Qualifiers: Hyperlipidemia type: unspecified Qualified Code(s): E78.5 - Hyperlipidemia, unspecified (7) Dementia Current Visit: Yes Status: Acute Code(s): F03.90 - Unspecified dementia without behavioral disturbance Qualifiers: Dementia type: vascular dementia Dementia behavioral disturbance: without behavioral disturbance Qualified Code(s): F01.50 - Vascular dementia without behavioral disturbance - Assessment / Plan Additional Assessment/Plan Details: still awaiting urine culture results, continue empiric rocephin for UTI, present on admission dementia is advanced, associated with weight loss--known smoker will get CT of chest given smoking history check MRI brain to see if stroke present, cerebellar damage to explain dizziness back off on flourinef with elevated blood pressures dizziness could be dementia related, possibly small vessel disease related stop telemetry monitoring, patient not tolerating, and continues to try to pull leads off several times, not understanding them. not able to live on his own, daughter not able to care for patient due to alcoholism. social worker clinical involved, [facility] willing to accept. family present (brothers and sister) and they are concerned for welfare of patient and want to see him in [facility]. granddaughter trying to sal POA possible disposition to SNF on Friday?
--- NOTE | 2019-02-18 17:12 | DI ---
MRI Brain WO Contrast 02/18/2019 3:25 PM History: [facility] [place] DI ^confusion, dizziness, question stroke Comparison: CT head from earlier the same day. Technique: Routine noncontrast multiecho multiplanar MR imaging of the brain was performed. Findings: There is no evidence of acute or chronic hemorrhage. No extra-axial fluid collections are p resent. There is no focal mass or mass-effect. The ventricles and cisterns are globally prominent, co nsistent with age related atrophy. There is normal anatomic appearance of the midline structures. No white matter abnormalities are seen. There is no diffusion restriction. The cerebral vasculature is grossly normal in appearance. The orbits and paranasal sinuses are unremarkable. Impression: 1. No MR evidence of acute intracranial pathology. 2. Age related senescent changes.
--- NOTE | 2019-02-18 18:05 | DI ---
CT Chest W Contrast 02/18/2019 4:55 PM History: [facility] [place] DI ^smoker, weight loss Comparison: Chest x-ray from 02/16/2019, CT abdomen/pelvis 09/23/2018, CT chest 06/27/2017. Technique: Contrast enhanced CT of the chest was performed after the administration of 65 mL of Omnip aque 300 intravenous contrast. Axial, coronal, and sagittal images were obtained from the thoracic in let through the lung bases. Findings: Evaluation of the lungs demonstrates emphysematous changes bilaterally with no consolidatio n, pneumothorax, or pleural effusion. There is biapical pleural-parenchymal scarring. No new pulmonar y nodules are noted. There is moderate diffuse bronchial wall thickening without endobronchial lesion. There is no mediast inal or hilar lymphadenopathy. The thoracic aorta and pulmonary vessels demonstrate normal course and caliber. There are aortic and coronary artery calcifications. Heart size is within normal limits wit h no pericardial effusion. The thyroid exhibits normal CT morphology. Osseous structures are not significantly changed. The visualized upper abdominal structures incompletely captured an abdominal aortic aneurysm that kary sures up to 4.5 cm in AP dimension (previously 3.9 cm). There is likely contained plaque rupture juju g the left lateral wall, though the extent of the aorta is not captured. Hypoattenuating lesions in t he liver and left kidney have not significantly changed compared to prior imaging. Impression: 1. Bilateral emphysematous change without CT evidence of acute cardiopulmonary pathology. 2. There is diffuse bronchial wall thickening without endobronchial lesion. This is a non-specific fi nding that is most commonly seen in the setting of acute or chronic bronchitis, as well as reactive a irways disease. 3. Enlarging abdominal aortic aneurysm, incompletely characterized on this exam. Dedicated angiograph ic imaging is recommended.
[2019-02-18] MEDS: cefTRIAXone Inj 2 GM in Sodium Chloride 0.9% 100 ML IV SCH (18:12)
[2019-02-19 05:43] LABS: BLOOD UREA NITROGEN 15 mg/dL (7-22); BUN/CREATININE RATIO 18.75 (6-20)
[2019-02-19] MEDS ORDERED: levETIRAcetam Inj 500 MG/5 ML VIAL IV ONE (06:08)
[2019-02-19] MEDS: OMEPRAZOLE 20 MG CAPSULE PO SCH (08:32)
[2019-02-19] MEDS: ASPIRIN EC 81 MG TABLET PO SCH (08:32)
[2019-02-19] MEDS: POTASSIUM CHLORIDE 20 MEQ TAB PO SCH (08:32)
[2019-02-19] MEDS: FLUDROCORTISONE ACETATE 0.1 MG TABLET PO SCH ×2 (08:33→20:20)
[2019-02-19] MEDS: POLYETHYLENE GLYCOL 3350 238 GM POWDER PO SCH (10:17)
--- NOTE | 2019-02-19 10:40 | OT.PROG ---
Progress Note Progress Note: Due to medical issues during PT session this morning, OT session was withheld. will attempt this afternoon.
--- NOTE | 2019-02-19 10:50 | PDOC(PROG) ---
Date of Service: 02/19/19 Time of Service: 10:44 Interval History: He thought he arrived to the hospital yesterday. I don't think he is aware this is a hospital. He states he is happy with the free meal and breakfast this morning. He denies any chest pains, trouble breathing, nausea or vomiting. 2 events this morning. RN described event where patient became stiff and unresponsive, episode resolved, patient has no recall of event. no convulsions. patient had postural hypotension in therapy today. they stopped therapy Objective : Data - Labs CBC and BMP: 02/17/19 14:10 02/19/19 05:27 - Imaging CT Scan Status: Image Reviewed by Me (CT chest reviewed and discussed with radiology. There are some nodules, but no masses or suspicious lesions. However incidentally there appears to be an abdominal aortic aneurysm that we will characterize this morning with a CTA scan of the abdomen and pelvis with abdominal aortic focus with the runoff to the bifurcation) Objective : Exam - General General Appearance: No Acute Distress, Cooperative Additional General Exam Details: Vital Signs - Last Taken Temperature 98.1 F 02/19/19 06:26 Pulse Rate 74 02/19/19 06:26 Respiratory Rate 14 02/19/19 06:26 Blood Pressure 144/74 02/19/19 06:26 Pulse Ox 96 02/19/19 06:26 - Eye Eye Exam: No Scleral Icterus - ENT ENT Exam: Mucous Membranes Moist - Neck Neck Exam: JVP is not Raised - Respiratory Respiratory Exam: Clear to Auscultation - Bilaterally, Breathing Non Labored - Cardiovascular Cardiovascular Exam: RRR, No Murmur, No Clicks, No Gallops, No Rubs, No JVD - GI/Abdominal GI/Abdominal Exam: Normal Bowel Sounds, Non Tender, Non Distended, Soft - Rectal Rectal Exam: Deferred - External Exam: Deferred Exam: Deferred - Extremities Extremities Exam: No Edema Present, No Cyanosis Present, Clubbing Present - Neurological Neurological Exam: Alert, No Facial Droop, Speech Intact / Clear, Moves All Extremities Equally Additional Neurological Exam Details: Oriented to person, not to place, time, or situation Assessment and Plan - Patient Problems (1) Abdominal aortic aneurysm Current Visit: Yes Status: Acute Code(s): I71.4 - Abdominal aortic aneurysm, without rupture Qualifiers: Presence of rupture: without rupture Qualified Code(s): I71.4 - Abdominal aortic aneurysm, without rupture (2) Urinary tract infection Current Visit: Yes Status: Acute Code(s): N39.0 - Urinary tract infection, site not specified Qualifiers: Urinary tract infection type: acute cystitis Hematuria presence: without hematuria Qualified Code(s): N30.00 - Acute cystitis without hematuria (3) Coronary artery disease Current Visit: Yes Status: Acute Code(s): I25.10 - Atherosclerotic heart disease of [place] coronary artery without angina pectoris Qualifiers: Coronary Disease-Associated Artery/Lesion type: [place] artery [place] vs. transplanted heart: [place] heart Associated angina: without angina Qualified Code(s): I25.10 - Atherosclerotic heart disease of [place] coronary artery without angina pectoris (4) BPH (benign prostatic hyperplasia) Current Visit: No Status: Chronic Onset Date: 02/20/15 Code(s): N40.0 - Benign prostatic hyperplasia without lower urinary tract symptoms Qualifiers: Lower urinary tract symptom presence: symptoms present Lower urinary tract symptom detail: urinary obstruction Qualified Code(s): N40.1 - Benign prostatic hyperplasia with lower urinary tract symptoms; N13.8 - Other obstructive and reflux uropathy (5) Dizziness Current Visit: Yes Status: Acute Code(s): R42 - Dizziness and giddiness (6) GERD (gastroesophageal reflux disease) Current Visit: Yes Status: Chronic Onset Date: 02/20/15 Code(s): K21.9 - Gastro-esophageal reflux disease without esophagitis Qualifiers: Esophagitis presence: esophagitis presence not specified Qualified Code(s): K21.9 - Gastro-esophageal reflux disease without esophagitis (7) Hyperlipidemia Current Visit: Yes Status: Acute Onset Date: 02/20/15 Code(s): E78.5 - Hyperlipidemia, unspecified Qualifiers: Hyperlipidemia type: unspecified Qualified Code(s): E78.5 - Hyperlipidemia, unspecified (8) Dementia Current Visit: Yes Status: Acute Code(s): F03.90 - Unspecified dementia without behavioral disturbance Qualifiers: Dementia type: vascular dementia Dementia behavioral disturbance: without behavioral disturbance Qualified Code(s): F01.50 - Vascular dementia without behavioral disturbance - Assessment / Plan Additional Assessment/Plan Details: For abdominal aortic aneurysm, characterize with CTA of abdomen and pelvis today. Awaiting report. I did discuss with family, particularly his granddaughter who is pursuing a power of trademark attorney. I also spoke with his brothers and sister, and I would not recommend any therapy for this, although an endograft could be considered if patient is a candidate. If they pursue endograft, the patient would probably have to have an appointment initially with vascular surgery to determine his candidacy for an endograft placement and a perhaps interventional radiology. I did state to the family that if this were to rupture, it would likely be a very quick . They expressed that they understand the risks and benefits involved. In terms of urinary tract infection, continue Rocephin. It was reintubated for growth, there is no growth by tomorrow, I suspect that this is not likely the case. but continue for now. Patient appears to have postural hypotension that's extremely variable. Continue Florinef. May be difficult to add antihypertensive agents based on significant drops in blood pressure at times. The patient has no medical decision making capacity as his dementia is too far advanced. In terms of his decision-making abilities outside of medical issues, that is more of a legal question but he does not have medical decision making capacity. I agree with the family's approach to try and help her granddaughter become the power of trademark attorney is the patient's daughter is an alcoholic, and probably not capable of helping the patient in an appropriate manner. Patient not safe to live at home due to his dementia. In terms of his event this morning where it seems suspicious for seizure, I did discuss that patients with dementia have about a 1 and 4 chance of having a seizure disorder. I offered workup, but empiric therapy is also reasonable. They opted for empiric antiseizure therapy and have started the patient on Keppra. I did disclose rare risk of Alcocer-Piotr syndrome and they seem to understand that as well in terms of trying this medication but still opt for empiric therapy with Keppra. Probable disposition to [facility] tomorrow.
--- NOTE | 2019-02-19 10:53 | PT.PROG ---
Progress Note Progress Note: S. pt was finished with Breakfast and was willing to work with PT O. pt was assisted with Donning Cloths Min A for Balance while he put on his cloths. Min A for ambulation to the toilet, He was transferred to a W/C and transported down to therapy. He ambulated with Min A outside and sat down and was helped to Ambulate back in. He transferred from chair to wheel chair. Checked BP's which were 75/50. He was transported by W/C up to room and nursing was notified. A. pt grew very light headed and had a difficult gait. Safety was a concern and we sat him down and checked blood pressures. When we took him back to the room medical staff and family were discussing options for an aortic bulge. Blood pressures are a concern 75/50. Granddaughter was asked to bring clean clothes for the pt. He was confused cognitively though he was able to recognize me from 20 years ago. P. cont POC until decisions are made concerning health options and possible long goods drier care. Kylee Clay TERRITORY MANAGER [employer]
--- NOTE | 2019-02-19 14:38 | DCSUMMARY ---
Hospitalization Summary Hospital Course: Final Discharge Diagnosis: Current Visit Problems Problem Status Onset Code Dizziness Acute R42 Hypotension Acute I95.9 Dehydration Acute E86.0 Urinary tract infection Acute N39.0 Urinary tract infection Acute N39.0 Coronary artery disease Acute I25.10 Dementia Acute F03.90 Abdominal aortic aneurysm Acute I71.4 Hyperlipidemia Acute 02/20/15 E78.5 GERD (gastroesophageal reflux disease) Chronic 02/20/15 K21.9 Diagnostic Data, Laboratory Data, and Procedures of Signifigance: Past Medical History Medical History: 1. Coronary artery disease status post bare metal stents in 2013. 2. Benign prostatic hypertrophy with history of obstructive uropathy, status post recent transurethral water vaporization of the prostate with resultant improved post void residual. 3. Tobacco abuse. 4. Overall failure to thrive, weighs 138 pounds now and was 155 in 2017. 5. Cognitive impairment versus dementia. 6. Hypercholesterolemia. 7. GERD Surgical History: 1. Bare metal stents as mentioned. 2. History of cystoscopy Pertinent Family History: Significant for diabetes in one of his daughters. He states his father had stroke and heart attack and he does not know his mother's history Past Social History: Lives with his daughter. Used to work as a contractor. Smoker. Currently does not drink alcohol. Has 1 daughter and one granddaughter. History and Physical pertinent to Admission: Probable disposition to [facility] tomorrow. Course of Hospitalization: This very nice 73-year-old the gentleman, with a history of BPH chronic dizziness and lightheadedness, coronary artery disease status post the bare metal stents please see complete list of past medical history comes into the ER complaining of dizziness he also went to the ER the day before but he had no recollection that he was there CT of the neck was negative CT of the head was negative his UA culture was negative and his cognitive capacities are diminished not knowing why he takes his pills or understands a lot of his chronic medical issues. It was arranged for him by my colleague Dr. Gaxiola who spoke to the family to be transferred to [facility] since the patient cannot take care of himself please see his H&P and progress notes for details. He does have a history of abdominal aortic aneurysm seen on CT scan today he is getting the CTA angiography of his abdomen to better determine the size of this aortic abdominal aneurysm Dr. Gaxiola discussed this with her granddaughter was pursuing power of research attorney and that they will figure out if to pursue anything or to pursue surgical treatment after the results are in this was conveyed to Dr. Ocasio primary care physician by Dr. Gaxiola who will pursue whatever the family is thinking hopefully the the granddaughter will obtain power of research attorney today to make decisions for his health. In terms of his UTI there is no growth so antibiotics were stopped his postural hypertension is stable he is on Florinef. His dementia is too far advanced and has no medical decision capacity. He is also on Keppra empirically as discussed by Dr. Gaxiola and the family. He will be discharged in the morning to [facility]. Patient is doing well has no complaints no chest pain nausea or vomiting he is very happy at the to be here On the date of discharge, the patient was examined: Gen.: No acute distress, alert, nontoxic Heart: Regular rate and rhythm, no murmurs, clicks, gallops, or rubs Lungs: Clear to auscultation bilaterally, breathing is nonlabored Abdomen/GI: Normal tones on auscultation, soft, nontender, nondistended Musculoskeletal/extremities: No clubbing, cyanosis, or edema Vitals reviewed and are listed below Vital Signs (24 hrs) 02/18/19 16:23 02/18/19 21:00 02/19/19 00:31 Temperature 98.2 F 97.3 F Pulse Rate [Apical] 62 Pulse Rate [Pulse Oximeter Right] 84 72 Respiratory Rate 16 16 Blood Pressure [Left Arm] 184/95 Blood Pressure [Right Arm] 139/100 151/100 Pulse Ox 95 97 95 02/19/19 05:00 02/19/19 06:26 02/19/19 12:23 Temperature 98.1 F 97.6 F Pulse Rate [Apical] Pulse Rate [Pulse Oximeter Right] 56 L 74 74 Respiratory Rate 16 14 16 Blood Pressure [Left Arm] 92/54 Blood Pressure [Right Arm] 115/61 144/74 Pulse Ox 94 96 95 Assessment and Plan: 1. As per discharge assessments above 2. Disposition: [facility] in a.m. 3. Condition on discharge, stable and improved. 4. Diet: regular diet 5. Activities: resume normal activities 6. Follow-Up: 1. PCP 2. 7. Medications at the Time of Discharge: Home Medications Medication Instructions Recorded Confirmed aspirin 81 mg tablet,delayed 81 mg PO QDAY tab 06/20/17 02/17/19 release ibuprofen 200 mg tablet 400 mg PO PRN PRN tab 06/20/17 02/17/19 polyethylene glycol 3350 17 255 g PO QDAY PRN #255 g 12/16/17 02/17/19 gram/dose oral powder fludrocortisone 0.1 mg tablet 0.2 mg PO BID #120 tab 05/14/18 02/17/19 omeprazole 20 mg tablet,delayed 20 mg PO QDAY PRN #90 tab 05/14/18 02/17/19 release pravastatin 40 mg tablet 40 mg PO QDAY #90 tab 05/14/18 02/17/19 potassium chloride ER 20 mEq 20 meq PO DAILY #60 tab 08/18/18 02/17/19 tablet,extended release finasteride 5 mg tablet 5 mg PO QDAY #30 tab 12/23/18 02/17/19 sodium chloride 1 gram tablet 1,000 mg PO QDAY #30 tab 02/01/19 02/17/19 8. Time, care, counseling and coordination of care for this discharge is greater than 30 minutes. Exam - Vitals Vital Signs: Vital Signs Temperature 97.6 F Temperature Source Temporal Artery Scan Pulse Rate [Apical] 62 Pulse Rate [Pulse Oximeter 74 Right] Pulse Rate 60 Respiratory Rate 16 Blood Pressure [Right Arm] 144/74 Blood Pressure [Left Arm] 92/54 Blood Pressure 128/74 Pulse Ox 95 Oxygen Delivery Method Room Air Height 5 ft 8 in Weight 127 lb 4.8 oz
--- NOTE | 2019-02-19 15:10 | DI ---
CT CTA Upper Abd WWO Contrast 02/19/2019 7:00 AM History: [facility] [place] DI ^abdominal aortic aneurysm Comparison: CT abdomen/pelvis without contrast 09/23/2018. Procedure: Contrast enhanced arterial phase CT from the lung bases through the abdominal aortic bifu rcation was performed after the administration of approximately 90 mL of Ultravist 370 intravenous co ntrast. Imaging was performed with a multi-detector CT scanner without cardiac gating. There was no i mmediate complication. Findings: The abdominal aorta is tortuous and there is extensive hard and soft plaque throughout the aortoiliac vessels. There is an infrarenal abdominal aortic aneurysm measuring 4.0 cm AP by 4.0 cm tr ansverse (previously 3.9 cm). Irregularity of the internal lumen and soft plaque is concerning for pl aque rupture. There is no active contrast extravasation. There is occlusion of the right external josh ac artery from its origin to the level of the common femoral artery. There is retrograde filling of t he common femoral artery. Subcentimeter hypoattenuating lesions in the liver have not significantly changed and are most likely simple cysts. There is a 4.1 x 4.0 x 5.4 cm simple cyst in the lower pole of the left kidney. There is normal CT appearance of the gallbladder, adrenal glands, spleen, right kidney, and pancreas. Hollo w viscus organs demonstrate normal course and caliber. There is no free intraperitoneal air or fluid. The prostate is enlarged. No abdominopelvic lymphadenopathy is present. There is no inguinal or abdo cata wall hernia. Osseous structures are not significantly changed. Impression: 1. There is a 4.0 cm infrarenal abdominal aortic aneurysm. 2. 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
--- NOTE | 2019-02-19 15:58 | PT.PROG ---
Progress Note Progress Note: S. pt was working with Occupational Therapy. O. Therapy co-treated with OT to ambulate pt down to the therapy clinic. He participated in using 3 # ankle weight for bilateral marches, and LAQ. Sit to stands. Ambulation x 100 feet where is was transferred into a W/C and transported to his room where he was transferred into his bed, shoes taken off and all alarms were applied for safety. A. pt is very confused and requires one repeated cue at a time. pt gets agitated and worries about his family waiting for him and want to go see them. Safety is a concern both for physical inability but also cognitively. P. Cont POC till he is discharged in the near future to the care center. [employer]
--- NOTE | 2019-02-19 15:59 | OT.PROG ---
Progress Note Progress Note: S: pt stated that he gets quite dizzy at times. O: pt was seen in his room and was sleeping in supine position. He completed bed mobility Ind to EOB. He was unable to katie shorts and became aggitated and decided to katie pants. He also donned his shirt and boots Ind. He completed toilet transfer which was completed with CGA as he was becoming quite dizzy. He completed hygiene at sink with CGA for safety purposes. He completed transfer downstairs only to have to sit in w/c due to becoming light headed. He completed 8 in On UE bike to increase activity tolerance. He also completed gtb, all planes x10, shoulder press 4# x10 all to increase UE strength. A: pt is very unstable during transfers as he becomes extremely dizzy and remains high fall risk. He was very impulsive throughout his room today completing ADL's. He appears to have good UE strength to assist with postural transitions. P: Continue per POC.
[2019-02-19] MEDS: LevETIRAcetam Tab 500 MG TABLET PO SCH (20:20)
[2019-02-20 04:43] VITALS: O2SAT 95
[2019-02-20 06:48] VITALS: BP 183/99; RESP 16; TEMP 97.3
[2019-02-20] MEDS: OMEPRAZOLE 20 MG CAPSULE PO SCH (07:01)
[2019-02-20] MEDS: POTASSIUM CHLORIDE 20 MEQ TAB PO SCH (09:05)
[2019-02-20] MEDS: ASPIRIN EC 81 MG TABLET PO SCH (09:05)
[2019-02-20] MEDS: LevETIRAcetam Tab 500 MG TABLET PO SCH (09:05)
[2019-02-20] MEDS: FLUDROCORTISONE ACETATE 0.1 MG TABLET PO SCH (09:05)
[2019-02-20] MEDS: POLYETHYLENE GLYCOL 3350 238 GM POWDER PO SCH (09:06)
== END 2019-02-20 09:55 | DRG 690 ==
LOC: ER 13:28 → MED/SURG 16:55
PROVIDERS: ADMIT Family Medicine; ATTEND Family Medicine